=== PATIENT | male | born 1980 | race Caucasian/White ===

== ENCOUNTER 2016-10-19 19:07 | Emergency (ER) | payer OTHER, BC ==
--- NOTE | 2016-10-19 20:21 | EDM.PDOC ---
ED HPI GENERAL MEDICAL PROBLEM - General Chief Complaint: Laceration Stated Complaint: SMASHED/LACERATION RT HAND Time Seen by Provider: 10/19/16 20:14 Source of Information: Reports: Patient - History of Present Illness INITIAL COMMENTS - FREE TEXT/NARRATIVE: right hand hit with a piece of equipment sustaining laceration about 2 hours ago no other injury Right Middle Hand Pain Score (Numeric/FACES): 5 - Related Data Allergies Allergy/AdvReac Type Severity Reaction Status Date / Time No Known Allergies Allergy Verified 10/19/16 19:45 Home Meds: Home Meds . [No Known Home Meds] 10/19/16 [History] Past Medical History - Past Health History Medical/Surgical History: Denies Medical/Surgical History Social & Family History - Tobacco Use Smoking Status *Q: Current Every Day Smoker Years of Tobacco use: 20 Packs/Tins Daily: 1 Second Hand Smoke Exposure: Yes - Caffeine Use Caffeine Use: Reports: Soda - Alcohol Use Days Per Week of Alcohol Use: 1 Number of Drinks Per Day: 3 Total Drinks Per Week: 3 - Recreational Drug Use Recreational Drug Use: No ED ROS GENERAL - Review of Systems Review Of Systems: See Below Constitutional: Reports: Other (tetanus immunization status up to date) HEENT: Reports: No Symptoms (no other injury reported) ED EXAM, SKIN/RASH Exam: See Below Text/Narrative:: alert normal mentation 2- cm laceration web space between 3rd and fourth finger right hand; wound soaked with hibiclens no bony tenderness; n/v/tendon function fingers normal Course - Vital Signs Last Recorded V/S: Last Vital Signs Temp 98.0 F 10/19/16 19:35 Pulse 78 10/19/16 19:35 Resp 16 10/19/16 19:35 BP 132/76 10/19/16 19:35 Pulse Ox 99 10/19/16 19:35 - Orders/Labs/Meds Meds: Medications Discontinued Medications Generic Name Dose Route Start Last Admin Trade Name Jonatan PRN Reason Stop Dose Admin Lidocaine HCl 20 ml 10/19/16 20:23 10/19/16 20:54 Xylocaine 1% INJECT 10/19/16 20:24 20 ml ONETIME ONE Administration Lidocaine/Tetracaine 1 ml 10/19/16 20:33 10/19/16 20:54 Let Soln TOP 10/19/16 20:34 1 ml ONETIME ONE Administration Departure - Departure Time of Disposition: 21:11 Disposition: Home, Self-Care 01 Condition: good Clinical Impression: Laceration - Discharge Information Forms: ED Department Discharge Additional Instructions: keep wound clean with soap and water cleansing daily sutures out seven days.
[2016-10-19] MEDS ORDERED: Lidocaine 1% 20 ML MDV INJECT ONE (20:23)
[2016-10-19] MEDS ORDERED: Lidocaine/EPINEPHrine/Tetracaine Soln 1 ML TOP ONE (20:33)
[2016-10-19] MEDS ORDERED: Bacitracin Oint 1 GM U/D Packet TOP ONE (21:13)
[2016-10-20 05:05] VITALS: BP 127/74
== END 2016-10-19 21:28 | disposition home or self-care (01) ==
LOC: MW.ED 19:07
DX: S61.411A Laceration without foreign body of right hand, initial encounter (principal); W22.8XXA Striking against or struck by other objects, initial encounter
CPT/HCPCS: 12001; 99282; 99283